=== PATIENT | female | born 1940 | race African-American/Black ===

== ENCOUNTER → 2020-07-04 | Outpatient (CLI) | payer MEDICARE, MEDICAID ==
--- NOTE | 2020-07-04 10:24 | RADIOLOGY REPORT (SQ) ---
EXAM DESCRIPTION: BARIUM SWALLOW ESOPHAGUS IMAGES COMPLETED DATE/TIME: 07/04/2020 9:27 am REASON FOR STUDY: K22.8 OTHER SPECIFIED DISEASES OF ESOPHAGUS K22.8 OTHER SPECIFIED DISEASES OF ESO PHAGUS COMPARISON: None. TECHNIQUE: Under fluoroscopic guidance, patient ingested effervescent granules followed by thick and thin barium. Fluoroscopic spot images and routine radiographic images acquired and stored on PACS. 12 MM BARIUM TABLET GIVEN: Yes. Slight delay in passage of the tablet across to an area of mild narrowing above the GE junction. LIMITATIONS: None. FLUOROSCOPY TIME: FLUORO TIME: 3.7 minutes of fluoroscopy was used. 15 images saved to PACS. FINDINGS: NEUROMUSCULAR COORDINATION OF SWALLOW: Normal. No aspiration. ESOPHAGEAL MOTILITY: Mild esophageal dysmotility with weak primary peristalsis. ESOPHAGEAL MUCOSA: Normal mucosa without masses or ulceration. Focal area of narrowing of the distal esophagus approximately 3 cm above the GE junction which did cause slight delay in passage of a 12 m m barium tablet requiring additional water through allow the pill to pass. GASTRO-ESOPHAGEAL JUNCTION: Small sliding hiatal hernia. No gastroesophageal reflux elicited on toda y's study. NON-GI TRACT STRUCTURES: Left-sided cardiac pacemaker in place. OTHER: No other significant finding. IMPRESSION: 1. FOCAL NARROWING OF THE DISTAL ESOPHAGUS, APPROXIMATELY 3 CM ABOVE THE GE JUNCTION WH ICH CAUSES SLIGHT DELAY IN PASSAGE 12 MM BARIUM TABLET. 2. SMALL SLIDING HIATAL HERNIA. 3. ESOPHAGEAL DYSMOTILITY COMMENT: Quality ID [id number]: Final reports for procedures using fluoroscopy that document radiation exp osure indices, or exposure time and number of fluorographic images (if radiation exposure indices are not available) TECHNICAL DOCUMENTATION: JOB ID: [id number] 2010 [employer]- All Rights Reserved Reading location - IP/workstation name: [email or web address] [id number]
== END ==
LOC: RAD 08:23
PROVIDERS: ATTEND Internal Medicine Gastroenterology
DX: K22.8 Other specified diseases of esophagus (principal); K44.9 Diaphragmatic hernia without obstruction or gangrene
CPT/HCPCS: 74220

== ENCOUNTER 2020-07-30 14:24 | Observation (INO) | payer MEDICARE, MEDICAID ==
[2020-07-30] MEDS ORDERED: ONDANSETRON HCL INJ/PF 4 MG/2 ML SDV IV ONE (15:26)
[2020-07-30] MEDS ORDERED: NORMAL SALINE 1000 ML 1,000 ML IV ONE (15:26)
--- NOTE | 2020-07-30 15:34 | ER Document Report ---
ED General - General Stated Complaint: ABDOMINAL CRAMPING Time Seen by Provider: 07/30/20 15:02 - HPI Notes: Patient is a 80-year-old female presents to the emergency department for evaluation via EMS. She is a difficult historian. Evidently she initially told EMS that she had been having abdominal cramping for about a week with intermittent nausea and loose stools. She told nursing she was having some chest pain. The patient tells me that she has had nausea for about a week. She started vomiting yesterday. She states she cannot keep anything down. She has had diarrhea, but she states that has been present for about 2 months. She went to her primary care office yesterday, Dr. Chambers, but was told to go back to the car as they were concerned she could have Covid. She states she was not tested at that time. She admits to a minimal, intermittently productive cough. - Related Data Allergies/Adverse Reactions: shellfish derived Allergy (Verified 07/30/20 19:43) Home Medications: Patient is unsure of all of her medications. She does not know of Mestinon, Xarelto, and an antihypertensive Past Medical History - General Information source: Patient - Social History Smoking Status: Former Smoker Drug Abuse: None Family History: Reviewed & Not Pertinent - Medical History Notes: Myasthenia gravis - Past Medical History Cardiac Medical History: Reports: Hx Atrial Fibrillation, Hx Heart Attack, Hx Hypertension Musculoskeletal Medical History: Reports Other - Myasthenia gravis Past Surgical History: Reports: Hx Pacemaker Review of Systems - Review of Systems Constitutional: Malaise, Weakness EENT: No symptoms reported Cardiovascular: See HPI Respiratory: No symptoms reported Gastrointestinal: See HPI Genitourinary: No symptoms reported Musculoskeletal: No symptoms reported Skin: No symptoms reported Neurological/Psychological: No symptoms reported Physical Exam - Vital signs Vitals: Temp Pulse Resp BP Pulse Ox 99.0 F 70 18 149/58 H 96 07/30/20 14:30 07/30/20 14:30 07/30/20 14:30 07/30/20 14:30 07/30/20 14:30 - Notes Notes: This is a 80-year-old female who appears her stated age in a moderate amount of distress. Initially upon my evaluation she is actively vomiting nonbloody, nonbilious emesis. Vital signs reviewed, please refer to chart. Head is normocephalic, atraumatic. Pupils equal round, reactive to light. Neck is supple without meningismus. Heart is regular rate and rhythm. Lungs are clear to auscultation bilaterally. Abdomen is soft, diffusely tender without rebound or guarding, normoactive bowel sounds throughout. Extremities without cyanosis, clubbing. Posterior calves are nontender. Peripheral pulses are equal. Skin is warm and dry. Patient is awake, alert, neurological exam is nonfocal. Course - Re-evaluation Re-evalutation: 07/30/20 17:55 Patient presents to the emergency department for evaluation. Laboratory investigations have been ordered. She is hyperchloremic and mildly hyponatremic, likely secondary to dehydration. She is given IV fluids and Zofran. Still awaiting urinalysis. I am concerned about the possibility of Covid in this patient, but I am unsure as to disposition in this patient as of yet. This will determine what type of test will be ordered. Awaiting the remainder of the patient's labs. We will continue to monitor. 07/30/20 19:57 Patient's laboratory investigations revealed significant hyperkalemia, no significant acidosis. Her urine is concentrated but no signs of infection are noted. She is a mild leukopenia. I do highly suspect Covid infection. I spoke with Dr. Baez, he will admit the patient for observation. He does request a rapid Covid test, this is ordered. Patient will be admitted for further care. - Vital Signs Vital signs: Temp Pulse Resp BP Pulse Ox 98.7 F 76 18 135/58 H 98 07/30/20 23:40 07/30/20 23:40 07/30/20 23:40 07/30/20 23:40 07/30/20 23:40 - Laboratory Results Result Diagrams: 07/30/20 16:07 07/30/20 16:07 Laboratory Results Interpreted: 07/30/20 07/30/20 07/30/20 16:07 16:07 19:18 WBC 3.0 L MCH 26.9 L RDW 14.3 H [place] % (Auto) 14.1 H Sodium 136.0 L Potassium 3.4 L Chloride 129 H Glucose 144 H Calcium 7.9 L Albumin 3.4 L Urine Protein 30 H Urine Ketones TRACE H Urine Blood SMALL H Urine Urobilinogen 2.0 H Critical Laboratory Results Reviewed: No Critical Results - Radiology Results Critical Radiology Results Reviewed: No Critical Results Discharge - Discharge Clinical Impression: Nausea vomiting and diarrhea, Dehydration, Hyperchloremia Condition: Stable Disposition: ADMITTED OBSERVATION Admitting Provider: Reyes Baez covering Unit Admitted: Medical Floor
[2020-07-30 16:20] LABS: ABSOLUTE LYMPHOCYTES (AUTO) 0.5 10^3/uL (0.5-4.7); ABSOLUTE MONOCYTES (AUTO) 0.4 10^3/uL (0.1-1.4); ABSOLUTE NEUT (AUTO) 2.1 10^3/uL (1.7-8.2); BASOPHILS % (AUTO) 0.3 % (0-2); EOSINOPHILS % (AUTO) 0.1 % (0-6); HEMATOCRIT 39.6 % (36.0-47.0); MEAN CORPUSCULAR HEMOGLOBIN 26.9 pg (27.0-33.4); MEAN CORPUSCULAR HGB CONC 32.7 g/dL (32.0-36.0); MEAN CORPUSCULAR VOLUME 82 fl (80-97); MONOCYTES % (AUTO) 14.1 % (3-13); PLATELET COUNT 200 10^3/uL (150-450); RED BLOOD COUNT 4.82 10^6/uL (3.72-5.28); RED CELL DISTRIBUTION WIDTH 14.3 % (11.5-14.0); SEGMENTED NEUTROPHILS % (AUTO) 68.5 % (42-78); TOTAL CELLS COUNTED % (AUTO) 100 %
--- NOTE | 2020-07-30 16:30 | RADIOLOGY REPORT (SQ) ---
EXAM DESCRIPTION: CHEST SINGLE VIEW IMAGES COMPLETED DATE/TIME: 07/30/2020 4:05 pm REASON FOR STUDY: chest/epigastric pain COMPARISON: None. EXAM PARAMETERS: NUMBER OF VIEWS: One view. TECHNIQUE: Single frontal radiographic view of the chest acquired. RADIATION DOSE: NA LIMITATIONS: None. FINDINGS: LUNGS AND PLEURA: Mild scarring in the lung bases. No opacities, masses or pneumothorax. No pleural effusion. MEDIASTINUM AND HILAR STRUCTURES: No masses. Contour normal. HEART AND VASCULAR STRUCTURES: Mild cardiomegaly. Normal vasculature. BONES: No acute findings. HARDWARE: Pacemaker. OTHER: No other significant finding. IMPRESSION: MILD CARDIOMEGALY AND BASILAR SCARRING. NO ACUTE RADIOGRAPHIC FINDING IN THE CHEST. TECHNICAL DOCUMENTATION: JOB ID: [id number] 2010 [employer]- All Rights Reserved Reading location - IP/workstation name: [email or web address]
[2020-07-30 16:39] LABS: ALBUMIN 3.4 g/dL (3.5-5.0); ALKALINE PHOSPHATASE 47 U/L (38-126); ASPARTATE AMINO TRANSFERASE 33 U/L (14-36); BILIRUBIN,DIRECT 0.2 mg/dL (0.0-0.4); BLOOD UREA NITROGEN 12 mg/dL (7-20); CALCIUM 7.9 mg/dL (8.4-10.2); GLUCOSE 144 mg/dL (75-110); POTASSIUM 3.4 mmol/L (3.6-5.0); TOTAL PROTEIN 6.8 g/dL (6.3-8.2)
[2020-07-30 16:50] LABS: CARBON DIOXIDE 26 mmol/L (22-30); CHLORIDE 129 mmol/L (98-107)
--- NOTE | 2020-07-30 17:18 | EKG REPORT ---
SEVERITY:- ABNORMAL ECG - VENTRICULAR-PACED COMPLEXES : Confirmed by: Susi Beltrán MD 30-Jul-2020 17:18:01
[2020-07-30] MEDS ORDERED: 1/2 NORMAL SALINE 1,000 ML IV ONE (17:51)
[2020-07-30 19:40] LABS: APPEARANCE,URINE SLIGHTLY-CLOUDY; BILIRUBIN,URINE NEGATIVE (NEGATIVE); GLUCOSE, URINE NEGATIVE (NEGATIVE); KETONES,URINE TRACE mg/dL (NEGATIVE); LEUKOCYTE ESTERASE,URINE NEGATIVE (NEGATIVE); NITRITE,URINE NEGATIVE (NEGATIVE); PROTEIN,URINE 30 mg/dL (NEGATIVE)
[2020-07-30 19:42] LABS: COLOR,URINE DARK YELLOW
[2020-07-30] MEDS ORDERED: ENOXAPARIN SODIUM INJ 40 MG/0.4 ML DISP.SYRIN SUBCUT ONE (23:45)
[2020-07-30] MEDS: POTASSI CL 40 MEQ/NS 1L 1,000 ML IV PRN (23:54)
[2020-07-31 05:04] LABS: HEMATOCRIT 34.3 % (36.0-47.0); HEMOGLOBIN 11.3 g/dL (12.0-15.5); MEAN CORPUSCULAR HEMOGLOBIN 26.7 pg (27.0-33.4); MEAN CORPUSCULAR HGB CONC 32.9 g/dL (32.0-36.0); MEAN CORPUSCULAR VOLUME 81 fl (80-97); PLATELET COUNT 177 10^3/uL (150-450); RED BLOOD COUNT 4.23 10^6/uL (3.72-5.28); RED CELL DISTRIBUTION WIDTH 14.3 % (11.5-14.0); WHITE BLOOD COUNT 2.9 10^3/uL (4.0-10.5)
[2020-07-31] MEDS: ONDANSETRON HCL INJ/PF 4 MG/2 ML SDV IV PRN (05:20)
[2020-07-31 05:22] LABS: BLOOD UREA NITROGEN 8 mg/dL (7-20); CARBON DIOXIDE 25 mmol/L (22-30); CHLORIDE 131 mmol/L (98-107); GLUCOSE 113 mg/dL (75-110); POTASSIUM 3.5 mmol/L (3.6-5.0)
[2020-07-31 05:34] LABS: ANION GAP -22 (5-19)
[2020-07-31 05:56] LABS: ABSOLUTE LYMPHOCYTES# (MANUAL) 1.1 10^3/uL (0.5-4.7); ABSOLUTE MONOCYTES # (MANUAL) 0.4 10^3/uL (0.1-1.4); BASOPHILS % (MANUAL) 0 % (0-2); EOSINOPHILS % (MANUAL) 1 % (0-6); LYMPHOCYTES % (MANUAL) 31 % (13-45); MONOCYTES % (MANUAL) 15 % (3-13); SEGMENTED NEUTROPHILS % (MAN) 47 % (42-78); TOTAL CELLS COUNTED 100
[2020-07-31 05:57] LABS: PLATELET COMMENT ADEQUATE
[2020-07-31 05:58] LABS: ANISOCYTOSIS SLIGHT; HYPOCHROMASIA SLIGHT; SCHISTOCYTES SLIGHT
[2020-07-31 05:59] LABS: TARGET CELLS SLIGHT
[2020-07-31] MEDS: POTASSI CL 40 MEQ/NS 1L 1,000 ML IV PRN ×2 (10:37→22:39)
[2020-07-31] MEDS ORDERED: DORZOLAMIDE HCL OU SCH (18:00)
[2020-07-31] MEDS ORDERED: CALCIUM GLUC IN NACL, ISO-OSM 1 GM/50 ML RTUPB IV ONE (18:07)
--- NOTE | 2020-07-31 18:07 | PDOC H&P ---
History of Present Illness Admission Date/PCP: 07/30/20 20:12 DOMINIK FANG MD History of Present Illness: CHARU MONZON is a 80 year old female She has a history of myasthenia gravis, chronic atrial fibrillation, she came to emergency room for evaluation of worsening diarrhea. She has chronic ongoing diarrhea she said the last 2 days it has worsened, in the emergency room she was evaluated she was found to have electrolyte derangements including hyperchloremic acidosis, hypocalcemia, she was supposed to have colonoscopy on August 09, [address] Fang outpatient, since she is admitted,DR Fang will be consulted Past Medical History Cardiac Medical History: Reports: Atrial Fibrillation, Myocardial Infarction, Hypertension Neurological Medical History: Reports: Other - Myasthenia gravis Musculoskeltal Medical History: Reports: Other - Myasthenia gravis Past Surgical History Past Surgical History: Reports: Pacemaker Social History Smoking Status: Former Smoker Electronic Cigarette use?: No Frequency of Alcohol Use: None Hx Recreational Drug Use: No Drugs: None Hx Prescription Drug Abuse: No Family History Family History: Reviewed & Not Pertinent Parental Family History Reviewed: Yes Children Family History Reviewed: Yes Sibling(s) Family History Reviewed.: Yes Medication/Allergy Home Medications: Amlodipine Besylate [Norvasc 5 mg Tablet] 5 mg PO BID 07/31/20 Diphenoxylate HCl/Atropine [Lomotil Tablet] 1 each PO Q6HP PRN 07/31/20 Dorzolamide HCl/Pf [Dorzolamide 2% Eye Drop] 10 ml OU DAILY 07/31/20 Ergocalciferol (Vitamin D2) [Drisdol 50,000 Unit (1.25MG) Capsule] 50,000 unit PO LESLIE@1000 07/31/20 Latanoprost/Pf [Latanoprost 0.005% Eye Drop] 7.5 ml OU QHS 07/31/20 Levothyroxine Sodium [Synthroid] 200 mcg PO QAM 07/31/20 Pantoprazole Sodium [Protonix [address] Tablet] 20 mg PO QAM 07/31/20 Pyridostigmine [place] [Mestinon] 360 mg PO 5XD 07/31/20 Rivaroxaban [Xarelto] 20 mg PO QHS 07/31/20 Sotalol HCl [Betapace 80 mg Tablet] 80 mg PO BID 07/31/20 Valsartan 320 mg PO DAILY 07/31/20 Allergies/Adverse Reactions: shellfish derived Allergy (Verified 07/30/20 19:43) Review of Systems Constitutional: ABSENT: chills, fever(s), headache(s), weight gain, weight loss Eyes: ABSENT: visual disturbances Ears: ABSENT: hearing changes Cardiovascular: ABSENT: chest pain, dyspnea on exertion, edema, orthropnea, palpitations Respiratory: ABSENT: cough, hemoptysis Gastrointestinal: PRESENT: diarrhea Genitourinary: ABSENT: dysuria, hematuria Musculoskeletal: ABSENT: joint swelling Integumentary: ABSENT: rash, wounds Neurological: ABSENT: abnormal gait, abnormal speech, confusion, dizziness, focal weakness, syncope Psychiatric: ABSENT: anxiety, depression, homidical ideation, suicidal ideation Endocrine: ABSENT: cold intolerance, heat intolerance, menstrual abnormalities, polydipsia, polyuria Hematologic/Lymphatic: ABSENT: easy bleeding, easy bruising, lymphadenopathy Physical Exam Vital Signs: Temp Pulse Resp BP Pulse Ox 98.8 F 73 18 162/49 H 92 07/31/20 15:46 07/31/20 15:46 07/31/20 15:46 07/31/20 15:46 07/31/20 15:46 Intake & Output 07/30/20 07/31/20 08/01/20 06:59 06:59 06:59 Intake Total 1898 1222 Balance 1898 1222 Weight 71 kg General appearance: PRESENT: no acute distress, well-developed, well-nourished Head exam: PRESENT: atraumatic, normocephalic Eye exam: PRESENT: conjunctiva pink, EOMI, PERRLA. ABSENT: scleral icterus Ear exam: PRESENT: normal external ear exam Mouth exam: PRESENT: moist, tongue midline Neck exam: PRESENT: full ROM Respiratory exam: PRESENT: clear to auscultation eloy Cardiovascular exam: PRESENT: RRR, +S1, +S2 Pulses: PRESENT: normal dorsalis pedis pul, +2 pedal pulses bilateral Vascular exam: PRESENT: normal capillary refill GI/Abdominal exam: PRESENT: normal bowel sounds, soft Rectal exam: PRESENT: deferred Neurological exam: PRESENT: alert, CN II-XII grossly intact. ABSENT: motor sensory deficit Psychiatric exam: PRESENT: appropriate affect, normal mood Skin exam: PRESENT: dry, intact, warm Results Laboratory Results: 07/31/20 04:38 07/31/20 04:38 07/30/20 07/31/20 07/31/20 19:18 04:38 04:38 WBC 2.9 L RBC 4.23 Hgb 11.3 L Hct 34.3 L MCV 81 MCH 26.7 L MCHC 32.9 RDW 14.3 H Plt Count 177 Seg Neutrophils % Not Reportable Sodium 134.0 L Potassium 3.5 L Chloride 131 H Carbon Dioxide 25 Anion Gap -22 L BUN 8 Creatinine 0.50 L Est GFR ( Amer) > 60 Glucose 113 H Calcium 7.0 L* Urine Color DARK YELLOW Urine Appearance SLIGHTLY-CLOUDY Urine pH 5.0 Ur Specific [place] 1.030 Urine Protein 30 H Urine Glucose (UA) NEGATIVE Urine Ketones TRACE H Urine Blood SMALL H Urine Nitrite NEGATIVE Ur Leukocyte Esterase NEGATIVE Urine WBC (Auto) 1 Urine RBC (Auto) 5 07/30/20 16:07 Troponin I < 0.012 Impressions: Chest X-Ray 07/30/20 15:25 IMPRESSION: MILD CARDIOMEGALY AND BASILAR SCARRING. NO ACUTE RADIOGRAPHIC FINDING IN THE CHEST. Assessment & Plan - Diagnosis (1) Chronic diarrhea Is this a current diagnosis for this admission?: Yes Plan: She has worsening diarrhea with dehydration, she is admitted to be treated with IV fluid, consult GI Dr. Fang for colonoscopy (2) Hyperchloremic acidosis Is this a current diagnosis for this admission?: Yes Plan: This on chronic diarrhea, rehydrate with fluid (3) Hypocalcemia Is this a current diagnosis for this admission?: Yes Plan: Replace calcium (4) Dehydration Is this a current diagnosis for this admission?: Yes - Time Time Spent: Greater than 70 Minutes Critical Time spent with patient: 25-34 minutes Medications reviewed and adjusted accordingly: Yes Anticipated Discharge Disposition: Home, Self Care Anticipated Discharge Timeframe: within 72 hours
--- NOTE | 2020-07-31 18:18 | PDOC PROGRESS REPORT ---
Subjective Date:: 07/31/20 Subjective:: Patient seen by the bedside, she has no new complaints Reason For Visit: ACUTE GASTROENTERITIS Physical Exam Vital Signs: Temp Pulse Resp BP Pulse Ox 98.8 F 73 18 162/49 H 92 07/31/20 15:46 07/31/20 15:46 07/31/20 15:46 07/31/20 15:46 07/31/20 15:46 Intake & Output 07/30/20 07/31/20 08/01/20 06:59 06:59 06:59 Intake Total 1898 1222 Balance 1898 1222 Weight 71 kg General appearance: PRESENT: no acute distress Head exam: PRESENT: atraumatic, normocephalic Eye exam: PRESENT: PERRLA Ear exam: PRESENT: normal external ear exam Mouth exam: PRESENT: moist, tongue midline Neck exam: PRESENT: full ROM Respiratory exam: PRESENT: clear to auscultation eloy Cardiovascular exam: PRESENT: RRR, +S1, +S2 Pulses: PRESENT: normal dorsalis pedis pul, +2 pedal pulses bilateral Vascular exam: PRESENT: normal capillary refill GI/Abdominal exam: PRESENT: normal bowel sounds, soft Rectal exam: PRESENT: deferred Neurological exam: PRESENT: alert, CN II-XII grossly intact. ABSENT: motor sensory deficit Psychiatric exam: PRESENT: appropriate affect, normal mood Skin exam: PRESENT: dry, intact, warm. ABSENT: cyanosis, rash Results Laboratory Results: 07/31/20 04:38 07/31/20 04:38 07/30/20 07/31/20 07/31/20 19:18 04:38 04:38 WBC 2.9 L RBC 4.23 Hgb 11.3 L Hct 34.3 L MCV 81 MCH 26.7 L MCHC 32.9 RDW 14.3 H Plt Count 177 Seg Neutrophils % Not Reportable Sodium 134.0 L Potassium 3.5 L Chloride 131 H Carbon Dioxide 25 Anion Gap -22 L BUN 8 Creatinine 0.50 L Est GFR ( Amer) > 60 Glucose 113 H Calcium 7.0 L* Urine Color DARK YELLOW Urine Appearance SLIGHTLY-CLOUDY Urine pH 5.0 Ur Specific [place] 1.030 Urine Protein 30 H Urine Glucose (UA) NEGATIVE Urine Ketones TRACE H Urine Blood SMALL H Urine Nitrite NEGATIVE Ur Leukocyte Esterase NEGATIVE Urine WBC (Auto) 1 Urine RBC (Auto) 5 07/30/20 16:07 Troponin I < 0.012 Impressions: Chest X-Ray 07/30/20 15:25 IMPRESSION: MILD CARDIOMEGALY AND BASILAR SCARRING. NO ACUTE RADIOGRAPHIC FINDING IN THE CHEST. Assessment & Plan - Diagnosis (1) Chronic diarrhea Is this a current diagnosis for this admission?: Yes Plan: Continue IV fluid therapy (2) Hyperchloremic acidosis Is this a current diagnosis for this admission?: Yes (3) Hypocalcemia Is this a current diagnosis for this admission?: Yes (4) Dehydration Is this a current diagnosis for this admission?: Yes (5) Myasthenia gravis Is this a current diagnosis for this admission?: Yes (6) Permanent atrial fibrillation Is this a current diagnosis for this admission?: Yes - Time Time Spent with patient: 25-34 minutes Level of Care: ICU Medications reviewed and adjusted accordingly: Yes Anticipated discharge: Home - Plan Summary Plan Summary: Continue treatment, correct calcium continue fluid therapy, Consult Dr. Fang
[2020-07-31] MEDS ORDERED: VALSARTAN 160 MG TABLET PO ONE (18:45)
[2020-07-31] MEDS ORDERED: PANTOPRAZOLE SODIUM 20 MG TABLET.DR PO ONE (18:45)
[2020-07-31] MEDS ORDERED: LEVOTHYROXINE SODIUM 0.1 MG TABLET PO ONE (18:45)
[2020-07-31] MEDS: AMLODIPINE BESYLATE 5 MG TABLET PO SCH (18:58)
[2020-07-31] MEDS: SOTALOL HCL 80 MG TABLET PO SCH (18:58)
[2020-07-31] MEDS: RIVAROXABAN 10 MG TABLET PO SCH (21:18)
[2020-07-31] MEDS ORDERED: ENOXAPARIN SODIUM INJ 40 MG/0.4 ML DISP.SYRIN SUBCUT SCH (22:00)
[2020-07-31] MEDS ORDERED: LATANOPROST OU SCH (22:00)
[2020-08-01] MEDS: PYRIDOSTIGMINE BROMIDE 60 MG TABLET PO SCH ×5 (10:00→19:49)
[2020-08-01] MEDS: DORZOLAMIDE HCL 2% OPH SOLN 10 ML OU SCH ×3 (10:03→17:26)
[2020-08-01] MEDS: AMLODIPINE BESYLATE 5 MG TABLET PO SCH ×2 (10:10→17:26)
[2020-08-01] MEDS: SOTALOL HCL 80 MG TABLET PO SCH ×2 (10:15→17:26)
[2020-08-01] MEDS: VALSARTAN 160 MG TABLET PO SCH (10:16)
[2020-08-01] MEDS: PANTOPRAZOLE SODIUM 20 MG TABLET.DR PO SCH (10:16)
[2020-08-01] MEDS: LEVOTHYROXINE SODIUM 0.1 MG TABLET PO SCH (10:17)
[2020-08-01] MEDS: ONDANSETRON HCL INJ/PF 4 MG/2 ML SDV IV PRN ×2 (13:32→22:08)
[2020-08-01] MEDS: POTASSI CL 40 MEQ/NS 1L 1,000 ML IV PRN (19:51)
[2020-08-01] MEDS: RIVAROXABAN 10 MG TABLET PO SCH (21:35)
[2020-08-01] MEDS: LATANOPROST 0.005% OPH SOLN 2.5 ML OU SCH (21:36)
[2020-08-01] MEDS ORDERED: POTASSI CL 40 MEQ/NS 1L 1,000 ML IV PRN (21:50)
--- NOTE | 2020-08-01 21:57 | PDOC PROGRESS REPORT ---
Subjective Date:: 08/01/20 Subjective:: Patient still have loose stool, she believes the diarrhea is from Mestinon the m edication for myasthenia gravis Reason For Visit: ACUTE GASTROENTERITIS Physical Exam Vital Signs: Temp Pulse Resp BP Pulse Ox 98.2 F 65 20 150/52 H 95 08/01/20 16:49 08/01/20 16:49 08/01/20 16:49 08/01/20 16:49 08/01/20 16:49 Intake & Output 07/31/20 08/01/20 08/02/20 06:59 06:59 06:59 Intake Total 1898 2702 1360 Balance 1898 2702 1360 Weight 71 kg 71 kg General appearance: PRESENT: no acute distress Eye exam: PRESENT: PERRLA Respiratory exam: PRESENT: clear to auscultation eloy Cardiovascular exam: PRESENT: +S1, +S2 GI/Abdominal exam: PRESENT: soft Neurological exam: PRESENT: alert Results Laboratory Results: 07/31/20 04:38 07/31/20 04:38 07/30/20 16:07 Troponin I < 0.012 Impressions: Chest X-Ray 07/30/20 15:25 IMPRESSION: MILD CARDIOMEGALY AND BASILAR SCARRING. NO ACUTE RADIOGRAPHIC FINDING IN THE CHEST. Assessment & Plan - Diagnosis (1) Chronic diarrhea Is this a current diagnosis for this admission?: Yes Plan: Continue IV fluid therapy (2) Hyperchloremic acidosis Is this a current diagnosis for this admission?: Yes (3) Hypocalcemia Is this a current diagnosis for this admission?: Yes (4) Dehydration Is this a current diagnosis for this admission?: Yes (5) Myasthenia gravis Is this a current diagnosis for this admission?: Yes (6) Permanent atrial fibrillation Is this a current diagnosis for this admission?: Yes - Time Time Spent with patient: 15-24 minutes Level of Care: MEDICAL Medications reviewed and adjusted accordingly: Yes Anticipated discharge: Home
[2020-08-01 23:26] LABS: HEMATOCRIT 39.8 % (36.0-47.0); HEMOGLOBIN 13.2 g/dL (12.0-15.5); MEAN CORPUSCULAR HEMOGLOBIN 26.8 pg (27.0-33.4); MEAN CORPUSCULAR HGB CONC 33.2 g/dL (32.0-36.0); MEAN CORPUSCULAR VOLUME 81 fl (80-97); PLATELET COUNT 215 10^3/uL (150-450); RED BLOOD COUNT 4.94 10^6/uL (3.72-5.28); RED CELL DISTRIBUTION WIDTH 14.9 % (11.5-14.0); WHITE BLOOD COUNT 5.2 10^3/uL (4.0-10.5)
[2020-08-01 23:32] LABS: ALKALINE PHOSPHATASE 37 U/L (38-126); ASPARTATE AMINO TRANSFERASE 19 U/L (14-36); BILIRUBIN,DIRECT 0.2 mg/dL (0.0-0.4); BLOOD UREA NITROGEN 6 mg/dL (7-20); CALCIUM 7.3 mg/dL (8.4-10.2); CREATINE KINASE 74 U/L (30-135); GLUCOSE 146 mg/dL (75-110); POTASSIUM 3.4 mmol/L (3.6-5.0); TOTAL PROTEIN 6.3 g/dL (6.3-8.2)
[2020-08-01 23:45] LABS: TROPONIN I 0.013 ng/mL
[2020-08-01 23:46] LABS: CREATINE KINASE MB < 0.22 ng/mL (<4.55)
[2020-08-01 23:48] LABS: ABSOLUTE LYMPHOCYTES# (MANUAL) 0.9 10^3/uL (0.5-4.7); ABSOLUTE MONOCYTES # (MANUAL) 0.7 10^3/uL (0.1-1.4); BAND NEUTROPHILS % (MANUAL) 8 % (3-5); BASOPHILS % (MANUAL) 0 % (0-2); EOSINOPHILS % (MANUAL) 0 % (0-6); LYMPHOCYTES % (MANUAL) 16 % (13-45); MONOCYTES % (MANUAL) 13 % (3-13); SEGMENTED NEUTROPHILS % (MAN) 62 % (42-78); TOTAL CELLS COUNTED 100
[2020-08-01 23:50] LABS: ANISOCYTOSIS SLIGHT; BURR CELLS SLIGHT; CARBON DIOXIDE 25 mmol/L (22-30); CHLORIDE 126 mmol/L (98-107); HYPOCHROMASIA SLIGHT; OVALOCYTES SLIGHT; POIKILOCYTOSIS SLIGHT; TOXIC GRANULATION 1+; TOXIC VACUOLATION PRESENT
[2020-08-01 23:51] LABS: PLATELET COMMENT ADEQUATE; TEAR DROP CELLS SLIGHT
[2020-08-01 23:54] LABS: ANION GAP -17 (5-19)
[2020-08-02 06:00] LABS: CREATINE KINASE MB 0.23 ng/mL (<4.55); TROPONIN I 0.015 ng/mL
[2020-08-02] MEDS: PYRIDOSTIGMINE BROMIDE 60 MG TABLET PO SCH ×5 (06:07→21:32)
--- NOTE | 2020-08-02 07:15 | EKG REPORT ---
SEVERITY:- ABNORMAL ECG - VENTRICULAR-PACED COMPLEXES SINUS RHYTHM WITH FIRST DEGREE AVB AND V PACING WITH CAPTURE : Confirmed by: Luis Armando Sanford MD 02-Aug-2020 07:14:40
[2020-08-02] MEDS: LEVOTHYROXINE SODIUM 0.1 MG TABLET PO SCH (08:47)
[2020-08-02] MEDS: PANTOPRAZOLE SODIUM 20 MG TABLET.DR PO SCH (08:48)
[2020-08-02] MEDS: DORZOLAMIDE HCL 2% OPH SOLN 10 ML OU SCH ×3 (10:48→17:19)
[2020-08-02] MEDS: AMLODIPINE BESYLATE 5 MG TABLET PO SCH ×2 (10:48→17:17)
[2020-08-02] MEDS: VALSARTAN 160 MG TABLET PO SCH (10:49)
[2020-08-02] MEDS: SOTALOL HCL 80 MG TABLET PO SCH ×2 (10:50→17:17)
[2020-08-02] MEDS: DIPHENOXYLATE HCL/ATROP SULF 2.5-0.025 MG TABLET PO PRN (15:29)
[2020-08-02 17:59] LABS: CREATINE KINASE MB 0.41 ng/mL (<4.55)
[2020-08-02 18:01] LABS: TROPONIN I < 0.012 ng/mL
[2020-08-02] MEDS: RIVAROXABAN 10 MG TABLET PO SCH (21:33)
[2020-08-02 21:34] LABS: ALBUMIN 2.4 g/dL (3.5-5.0); ALKALINE PHOSPHATASE 26 U/L (38-126); ASPARTATE AMINO TRANSFERASE 25 U/L (14-36); BILIRUBIN,DIRECT 0.2 mg/dL (0.0-0.4); BILIRUBIN,TOTAL 0.7 mg/dL (0.2-1.3); BLOOD UREA NITROGEN 8 mg/dL (7-20); CALCIUM 8.1 mg/dL (8.4-10.2); CARBON DIOXIDE 18 mmol/L (22-30); CHLORIDE 135 mmol/L (98-107); GLUCOSE 117 mg/dL (75-110); TOTAL PROTEIN 5.3 g/dL (6.3-8.2)
[2020-08-02] MEDS: POTASSI CL 20 MEQ/50 ML RIDER 20 MEQ/50 ML RTUPB IV SCH (21:34)
[2020-08-02 21:48] LABS: POTASSIUM 4.3 mmol/L (3.6-5.0)
[2020-08-02] MEDS: LATANOPROST 0.005% OPH SOLN 2.5 ML OU SCH (21:49)
[2020-08-02 22:26] LABS: C DIFFICILE GDH NEGATIVE (NEGATIVE)
[2020-08-03] MEDS: POTASSI CL 20 MEQ/50 ML RIDER 20 MEQ/50 ML RTUPB IV SCH (00:27)
[2020-08-03] MEDS: ONDANSETRON HCL INJ/PF 4 MG/2 ML SDV IV PRN (00:27)
[2020-08-03] MEDS: DIPHENOXYLATE HCL/ATROP SULF 2.5-0.025 MG TABLET PO PRN ×2 (02:33→09:22)
[2020-08-03] MEDS: PYRIDOSTIGMINE BROMIDE 60 MG TABLET PO SCH ×3 (08:01→13:38)
[2020-08-03] MEDS: LEVOTHYROXINE SODIUM 0.1 MG TABLET PO SCH (08:01)
[2020-08-03] MEDS: PANTOPRAZOLE SODIUM 20 MG TABLET.DR PO SCH (08:01)
[2020-08-03] MEDS: VALSARTAN 160 MG TABLET PO SCH (09:20)
[2020-08-03] MEDS: AMLODIPINE BESYLATE 5 MG TABLET PO SCH (09:21)
[2020-08-03] MEDS: SOTALOL HCL 80 MG TABLET PO SCH (09:22)
[2020-08-03] MEDS: DORZOLAMIDE HCL 2% OPH SOLN 10 ML OU SCH ×2 (11:19→15:29)
--- NOTE | 2020-08-03 16:25 | PDOC DISCHARGE SUMMARY ---
Impression - Admit/DC Date/PCP Admission Date/Primary Care Provider: 07/30/20 20:12 DOMINIK GIANG MD Discharge Date: 08/03/20 - Discharge Diagnosis (1) Chronic diarrhea Is this a current diagnosis for this admission?: Yes (2) Hyperchloremic acidosis Is this a current diagnosis for this admission?: Yes (3) Hypocalcemia Is this a current diagnosis for this admission?: Yes (4) Dehydration Is this a current diagnosis for this admission?: Yes (5) Myasthenia gravis Is this a current diagnosis for this admission?: Yes (6) Permanent atrial fibrillation Is this a current diagnosis for this admission?: Yes - Additional Information Discharge Diet: As Tolerated Discharge Activity: Activity As Tolerated Referrals: ASHLEY MULLER MD [ACTIVE STAFF] - 08/15/20 2:30 pm Home Medications: Amlodipine Besylate [Norvasc 5 mg Tablet] 5 mg PO BID 07/31/20 Diphenoxylate HCl/Atropine [Lomotil 2.5-0.025 mg Tablet] 1 each PO Q6HP PRN 07/31/20 Ergocalciferol (Vitamin D2) [Drisdol 50,000 unit (1.25MG) Capsule] 50,000 unit PO LESLIE@1000 07/31/20 Levothyroxine Sodium [Synthroid] 200 mcg PO QAM 07/31/20 Pantoprazole Sodium [Protonix [address] Tablet] 20 mg PO QAM 07/31/20 Pyridostigmine [place] [Mestinon] 360 mg PO 5XD 07/31/20 Rivaroxaban [Xarelto] 20 mg PO QHS 07/31/20 Sotalol HCl [Betapace 80 mg Tablet] 80 mg PO BID 07/31/20 Valsartan 320 mg PO DAILY 07/31/20 Dorzolamide HCl [Trusopt Plus 2% Oph Soln 10 ml] 1 drop OU TID 08/01/20 Latanoprost [Xalatan 0.005% Oph Soln 2.5 ml] 1 drop OU QHS 08/01/20 History of Present Illiness History of Present Illness: CHARU MONZON is a 80 year old female She has a history of myasthenia gravis, chronic atrial fibrillation, she came to emergency room for evaluation of worsening diarrhea. She has chronic ongoing diarrhea she said the last 2 days it has worsened, in the emergency room she was evaluated she was found to have electrolyte derangements including hyperchloremic acidosis, hypocalcemia, she was supposed to have colonoscopy on August 09, [address] Giang outpatient, since she is admitted,DR Giang will be consulted Hospital Course Hospital Course: She has myasthenia gravis, she presented with chronic diarrhea with electrolyte derangement when she was admitted for observation the electrolytes were corrected including hypokalemia. She is scheduled for outpatient colonoscopy for next week. Physical Exam Vital Signs: Temp Pulse Resp BP Pulse Ox 98.1 F 64 20 135/58 H 96 08/03/20 15:30 08/03/20 15:30 08/03/20 15:30 08/03/20 15:30 08/03/20 15:30 Intake & Output 08/02/20 08/03/20 08/04/20 06:59 06:59 06:59 Intake Total 1360 580 Balance 1360 580 Weight 71 kg 71 kg General appearance: PRESENT: no acute distress Eye exam: PRESENT: PERRLA Respiratory exam: PRESENT: clear to auscultation eloy Cardiovascular exam: PRESENT: +S1, +S2 GI/Abdominal exam: PRESENT: soft Neurological exam: PRESENT: alert, CN II-XII grossly intact Results Laboratory Results: WBC 5.2 10^3/uL (4.0-10.5) 08/01/20 22:51 RBC 4.94 10^6/uL (3.72-5.28) 08/01/20 22:51 Hgb 13.2 g/dL (12.0-15.5) 08/01/20 22:51 Hct 39.8 % (36.0-47.0) 08/01/20 22:51 MCV 81 fl (80-97) 08/01/20 22:51 MCH 26.8 pg (27.0-33.4) L 08/01/20 22:51 MCHC 33.2 g/dL (32.0-36.0) 08/01/20 22:51 RDW 14.9 % (11.5-14.0) H 08/01/20 22:51 Plt Count 215 10^3/uL (150-450) 08/01/20 22:51 Lymph % (Auto) Not Reportable 08/01/20 22:51 [place] % (Auto) Not Reportable 08/01/20 22:51 Eos % (Auto) Not Reportable 08/01/20 22:51 Baso % (Auto) Not Reportable 08/01/20 22:51 Absolute Neuts (auto) Not Reportable 08/01/20 22:51 Absolute Lymphs (auto) Not Reportable 08/01/20 22:51 Absolute Monos (auto) Not Reportable 08/01/20 22:51 Absolute Eos (auto) Not Reportable 08/01/20 22:51 Absolute Basos (auto) Not Reportable 08/01/20 22:51 Total Counted 100 08/01/20 22:51 Seg Neutrophils % Not Reportable 08/01/20 22:51 Seg Neuts % (Manual) 62 % (42-78) 08/01/20 22:51 Band Neutrophils % 8 % (3-5) H 08/01/20 22:51 Lymphocytes % (Manual) 16 % (13-45) 08/01/20 22:51 Atypical Lymphs % 1 % (0) 08/01/20 22:51 Monocytes % (Manual) 13 % (3-13) 08/01/20 22:51 Eosinophils % (Manual) 0 % (0-6) 08/01/20 22:51 Basophils % (Manual) 0 % (0-2) 08/01/20 22:51 Abs Neuts (Manual) 3.6 10^3/uL (1.7-8.2) 08/01/20 22:51 Abs Lymphs (Manual) 0.9 10^3/uL (0.5-4.7) 08/01/20 22:51 Abs Monocytes (Manual) 0.7 10^3/uL (0.1-1.4) 08/01/20 22:51 Absolute Eos (Manual) 0.0 10^3/uL (0.0-0.6) 08/01/20 22:51 Abs Basophils (Manual) 0.0 10^3/uL (0.0-0.2) 08/01/20 22:51 Toxic Granulation 1+ 08/01/20 22:51 Toxic Vacuolation PRESENT 08/01/20 22:51 Platelet Comment ADEQUATE 08/01/20 22:51 Hypochromasia SLIGHT 08/01/20 22:51 Poikilocytosis SLIGHT 08/01/20 22:51 Anisocytosis SLIGHT 08/01/20 22:51 Target Cells SLIGHT 07/31/20 04:38 Tear Drop Cells SLIGHT 08/01/20 22:51 Ovalocytes SLIGHT 08/01/20 22:51 Gloria Cells SLIGHT 08/01/20 22:51 Schistocytes SLIGHT 07/31/20 04:38 Sodium 139.2 mmol/L (137-145) 08/02/20 15:43 Potassium 4.3 mmol/L (3.6-5.0) 08/02/20 15:43 Chloride 135 mmol/L (98-107) H 08/02/20 15:43 Carbon Dioxide 18 mmol/L (22-30) L 08/02/20 15:43 Anion Gap (5-19) 08/02/20 15:43 BUN 8 mg/dL (7-20) 08/02/20 15:43 Creatinine 0.51 mg/dL (0.52-1.25) L 08/02/20 15:43 Est GFR ( Amer) > 60 (>60) 08/02/20 15:43 Est GFR (MDRD) Non-Af > 60 (>60) 08/02/20 15:43 Glucose 117 mg/dL (75-110) H 08/02/20 15:43 Calcium 8.1 mg/dL (8.4-10.2) L 08/02/20 15:43 Total Bilirubin 0.7 mg/dL (0.2-1.3) 08/02/20 15:43 Direct Bilirubin 0.2 mg/dL (0.0-0.4) 08/02/20 15:43 Neonat Total Bilirubin Not Reportable 08/02/20 15:43 Neonat Direct Bilirubin Not Reportable 08/02/20 15:43 Neonat Indirect Bili Not Reportable 08/02/20 15:43 AST 25 U/L (14-36) 08/02/20 15:43 ALT 16 U/L (<35) 08/02/20 15:43 Alkaline Phosphatase 26 U/L (38-126) L 08/02/20 15:43 Creatine Kinase 53 U/L (30-135) 08/02/20 15:43 CK-MB (CK-2) 0.41 ng/mL (<4.55) 08/02/20 16:28 Troponin I < 0.012 ng/mL 08/02/20 16:28 Total Protein 5.3 g/dL (6.3-8.2) L 08/02/20 15:43 Albumin 2.4 g/dL (3.5-5.0) L 08/02/20 15:43 Lipase 114.9 U/L (23-300) 07/30/20 16:07 Urine Color DARK YELLOW 07/30/20 19:18 Urine Appearance SLIGHTLY-CLOUDY 07/30/20 19:18 Urine pH 5.0 (5.0-9.0) 07/30/20 19:18 Ur Specific [place] 1.030 07/30/20 19:18 Urine Protein 30 mg/dL (NEGATIVE) H 07/30/20 19:18 Urine Glucose (UA) NEGATIVE mg/dL (NEGATIVE) 07/30/20 19:18 Urine Ketones TRACE mg/dL (NEGATIVE) H 07/30/20 19:18 Urine Blood SMALL (NEGATIVE) H 07/30/20 19:18 Urine Nitrite NEGATIVE (NEGATIVE) 07/30/20 19:18 Urine Bilirubin NEGATIVE (NEGATIVE) 07/30/20 19:18 Urine Urobilinogen 2.0 mg/dL (<2.0) H 07/30/20 19:18 Ur Leukocyte Esterase NEGATIVE (NEGATIVE) 07/30/20 19:18 Urine WBC (Auto) 1 /HPF 07/30/20 19:18 Urine RBC (Auto) 5 /HPF 07/30/20 19:18 Squamous Epi Cells Auto 1 /HPF 07/30/20 19:18 Urine Mucus (Auto) FEW /LPF 07/30/20 19:18 Urine Ascorbic Acid NEGATIVE (NEGATIVE) 07/30/20 19:18 Stool for White Cells NO WBCs SEEN 08/02/20 21:18 Stl C. Difficile GDH Ag NEGATIVE (NEGATIVE) 08/02/20 21:18 Stl C.difficile Tox A&B NEGATIVE (NEGATIVE) 08/02/20 21:18 Influenza A (RT-PCR) NEGATIVE (NEGATIVE) 07/30/20 20:01 Influenza B (RT-PCR) NEGATIVE (NEGATIVE) 07/30/20 20:01 RSV (RT-PCR) NEGATIVE (NEGATIVE) 07/30/20 20:01 SARS-CoV-2 Rap RNA(RT-PCR) NEGATIVE (NEGATIVE) 07/30/20 20:01 07/30/20 08/01/20 08/02/20 16:07 22:51 04:17 CK-MB (CK-2) < 0.22 0.23 Troponin I < 0.012 0.013 0.015 08/02/20 16:28 CK-MB (CK-2) 0.41 Troponin I < 0.012 Impressions: Chest X-Ray 07/30/20 15:25 IMPRESSION: MILD CARDIOMEGALY AND BASILAR SCARRING. NO ACUTE RADIOGRAPHIC FINDING IN THE CHEST. Stroke Is this a Stroke Patient?: No Acute Heart Failure Is this a Heart Failure Patient?: No
[2020-08-03 18:06] VITALS: BP 130/51
[2020-08-07] MEDS ORDERED: ERGOCALCIFEROL (VITAMIN D2) 50000 UNIT (1.25 MG) CAPSULE PO SCH (10:00)
== END 2020-08-03 15:45 | disposition home or self-care (01) ==
LOC: ER 14:24 → EH 20:12 → 4N 23:15
PROVIDERS: ADMIT Family Medicine; ATTEND Family Medicine
DX: K52.9 Noninfective gastroenteritis and colitis, unspecified (principal); N25.89 Other disorders resulting from impaired renal tubular function; E83.51 Hypocalcemia; E86.0 Dehydration; G70.00 Myasthenia gravis without (acute) exacerbation; I48.21 Permanent atrial fibrillation; E87.6 Hypokalemia; R05 Cough; I25.2 Old myocardial infarction; D72.819 Decreased white blood cell count, unspecified; I10 Essential (primary) hypertension; Z87.891 Personal history of nicotine dependence; Z20.828 Contact with and (suspected) exposure to other viral communicable diseases; Z79.899 Other long term (current) drug therapy; Z95.0 Presence of cardiac pacemaker
CPT/HCPCS: 93005 ×2; 99285; 96361; 96374; 36415 ×4; 87045; 89055; 87205; 82553 ×2; 82550 ×2; 83690; 85025 ×3; 0241U ×4; 80048; 80053 ×3; 81001; 84484 ×3; 87324; 87449; 71045; 93010 ×2; G0378 ×4; A9270 ×29; J2405 ×4; J3480 ×5; J7030; J0610; C9803; J3490

== ENCOUNTER 2020-08-12 03:42 | Emergency (ER) | payer MEDICARE, MEDICAID ==
[2020-08-12 04:08] VITALS: BP 140/51
--- NOTE | 2020-08-12 05:40 | RADIOLOGY REPORT (SQ) ---
AP Portable chest: 08/12/2020 4:37 AM [employer] History: 80-year old patient with dyspnea. Comparison: Chest radiograph performed 07/30/2020. Findings: The cardiomediastinal silhouette is enlarged. No pneumothorax is seen. A dual-lead left-sided pacemaker is seen. Atherosclerotic calcifications are seen at the aortic arch. There are airspace opacities within the lung bases associated trace effusions. Impression: There is opacities within the lung bases associated trace effusions. These may reflect atelectasis or left likely infection.
--- NOTE | 2020-08-12 08:47 | EKG REPORT ---
SEVERITY:- ABNORMAL ECG - A-V PACED RHYTHM PAC : Confirmed by: Romeo Weems MD 12-Aug-2020 08:47:11
== END 2020-08-12 07:30 | disposition left against medical advice (07) ==
LOC: ER 03:42
DX: Z53.21 Procedure and treatment not carried out due to patient leaving prior to being seen by health care provider (principal)
CPT/HCPCS: 71046; 93005; 93010